=== PATIENT | female | born 1955 | race Caucasian/White ===

== ENCOUNTER 2016-08-11 22:03 | Emergency (ER) | payer BC ==
[~2016-08-11 22:03] MED LIST: CELEXA20 PO; CELEXA40 MG PO; COMPOUND PAIN CREAM TOP; COMPOUNDED PAIN CRM T; CYMBALTA60 PO; DIABETA5 PO; DITRO5 PO; FLECAINIDE50 MG PO; GLUCXL5 PO; L40 PO; LEVEMIR SC; LIDODERM TOP; LIPITOR40 PO; LISINOPRIL40 MG PO; LOP25 PO; LOP50 PO; LORT7 PO; LOZOLTAB PO; MICRO-K10 MEQ PO; MOBIC15 MG PO; NEUR100 PO; NEUR300 PO; NORCO1 TA2 PO; NORCO1 TAB PO; NOVOLOG SC; NOVOPEN SC; OCEAN NAS; ONGLYZA5 MG PO; PRADAXA150 MG PO; PROTONIX PO; ROLAIDS PO; TAMBO50 PO; TAMBOCOR PO; V2 PO; VITAMIN D 3 PO; Vitamin D3 PO; X5 PO; XANAX1 MG PO; ZESTRIL40 MG PO
== END 2016-08-11 23:17 | disposition home or self-care (01) ==
LOC: ER 22:03
DX: M25.551 Pain in right hip (principal); I50.9 Heart failure, unspecified; I12.9 Hypertensive chronic kidney disease with stage 1 through stage 4 chronic kidney disease, or unspecified chronic kidney disease; N18.9 Chronic kidney disease, unspecified; E11.9 Type 2 diabetes mellitus without complications; I48.91 Unspecified atrial fibrillation; Z88.5 Allergy status to narcotic agent; Z79.4 Long term (current) use of insulin; Z79.899 Other long term (current) drug therapy
CPT/HCPCS: 72170; 73502-RT; 96374; 99283; J1170; J2405